=== PATIENT | male | born 1950 | race Caucasian/White ===

== ENCOUNTER → 2022-07-22 | Outpatient (CLI) | payer MEDICARE ==
--- NOTE | 2022-07-22 17:05 | MR ---
EXAMINATION TYPE: MR lumbar spine wo con DATE OF EXAM: 07/22/2022 COMPARISON: None HISTORY: Lower back pain, radiates into buttocks and down right leg. CONTRAST: 0 mL intravenous Gadavist. TECHNIQUE: Multiplanar, multisequence images of the lumbar spine were acquired. FINDINGS: L5-S1: No focal disc herniation. Mild disc bulge is present with anterior thecal sac contact. No spin al canal stenosis is present. There is severe left foraminal stenosis from facet hypertrophy. L4-L5: Broad-based disc bulge is present with mild anterior thecal sac compression. Severe right and left foraminal stenosis present. Facet hypertrophy is present. Mild lateral canal narrowing may be pr esent. L3-L4: Broad-based disc bulge is present with mild anterior thecal sac compression. Facet hypertrophy is present contributing to spinal canal stenosis. Some lateral canal narrowing is present. Ligamentu m flavum laxity is present. Severe right and mild left foraminal stenosis is present. L2-L3: Broad-based disc bulge is present with moderate anterior thecal sac compression. Mild facet hy pertrophy is present. No AP spinal canal stenosis is present. Moderate left foraminal narrowing is pr esent. L1-L2: No significant disc bulge or disc herniation. No spinal canal stenosis. No foraminal stenosi s. Neural foramen are patent.. T12-L1: No significant disc bulge or disc herniation. No spinal canal stenosis. No foraminal stenos is. Neural foramen are patent.. Disc desiccation is present. There is narrowing of disc height throughout the lumbar spine. Scoliosis is present. IMPRESSION: 1. Spinal canal stenosis L3-4 secondary to broad-based disc bulging and facet hypertrophy. 2. Severe foraminal stenosis L3-4 through L5-S1 discussed above.
== END | disposition home or self-care (01) ==
LOC: RADMRIMAIN 10:31
PROVIDERS: ATTEND Family Medicine
DX: M51.16 Intervertebral disc disorders with radiculopathy, lumbar region (principal); M47.26 Other spondylosis with radiculopathy, lumbar region; M48.061 Spinal stenosis, lumbar region without neurogenic claudication
CPT/HCPCS: 72148

== ENCOUNTER → 2023-08-03 | Outpatient (CLI) | payer MEDICARE ==
--- NOTE | 2023-08-04 08:36 | US ---
EXAMINATION TYPE: US kidneys/renal and bladder DATE OF EXAM: 08/03/2023 COMPARISON: NONE CLINICAL INDICATION: Male, 72 years old with history of R94.4 ABNORMAL RESULTS OF KIDNEY; Abnormal re nal function. EXAM MEASUREMENTS: Right Kidney: 11.1 x 6.4 x 5.7 cm Left Kidney: 11.1 x 6.0 x 5.5 cm Right Kidney: Complex area seen at mid: 4.5 x 2.9 x 2.9 cm. *Hypoechoic, indistinct area seen posteriorly at mid: 6.0 x 5.5 x 3.3 cm. Anechoic area seen lower pole: 2.0 x 2.1 x 1.4 cm. Left Kidney: Multiple anechoic areas seen. Largest seen is at mid: 4.0 x 4.0 x 2.0 cm. Bladder: Appears anechoic. Slightly limited due to patient's difficulty holding bladder. Bilateral Jets seen: Yes IMPRESSION: 1. No renal calcification or hydronephrosis. 2. 2 right renal masses including a4.5 cm well-circumscribed anechoic mass in the anterior right kid pamela most likely represents a cyst with a fine septation and 6.0 cm hypoechoic mass in the posterior r ight kidney which most likely represents a cyst. However, both lesions require CT or MRI with attenti on to the kidneys to definitively characterize as benign cysts.
== END | disposition home or self-care (01) ==
LOC: RADUSWWP 14:22
PROVIDERS: ATTEND Family Medicine
DX: R94.4 Abnormal results of kidney function studies (principal)
CPT/HCPCS: 76770

== ENCOUNTER → 2023-09-27 | Outpatient (CLI) | payer MEDICARE ==
--- NOTE | 2023-10-17 11:25 | MR ---
Site ID [email or web address] Patient Jian Carmona E ID [id number] Age/Gender: 72Y, M Order # N/A Procedure MR Abdomen wo/w con Date 09/27/2023 1:33:31 PM EXAMINATION TYPE: MR abdomen wo/w con DATE OF EXAM: 09/27/2023 6:30 PM INDICATION: Patient age: Male; 72 year old; Reason for study: Abnormal labs, renal lesions COMPARISON: Renal ultrasound 08/03/2023 TECHNIQUE: Multiplanar multi-sequence imaging was performed of the abdomen without and with IV contr ast. The patient was given 8 ccs of Gadavist intravenously and dynamic imaging was performed. Post IV contrast subtraction images were also submitted for review. FINDINGS: LOWER CHEST: No gross irregularity. ABDOMEN Liver: Unremarkable. Gallbladder and Bile ducts: Unremarkable. Pancreas: Unremarkable. Spleen: Unremarkable. Adrenal glands: Unremarkable. Kidneys: No hydronephrosis. Approximately 4 T2 hyperintense right renal cysts. Inferior mid kidney on e measures 3.5 cm with thin septation. The superior mid kidney medial one measures up to 4.5 cm withi n septation. Approximately 5T2 hyperintense left renal cysts. The largest which is exophytic in the l eft kidney measures up to 3.2 cm with additional larger lesion within the inferior pole of the left k idney measuring up to 3.3 cm. There is layering T1 hyperintensity identified within a posterior left mid kidney cyst measuring up to 2.4 cm. Additional punctate T1 hyperintensity within the cortex of th e left mid kidney. None of the lesions demonstrate contrast enhancement. Contrast is demonstrated wit hin both collecting systems on the delayed phases. Stomach and Bowel: Unremarkable as visualized. Peritoneum: No evidence of pneumoperitoneum, free fluid, or adenopathy. Vasculature: Unremarkable. No aortic aneurysm. Abdominal wall: Unremarkable. Musculoskeletal: The osseous structures appear intact. Degenerative changes of the visualized spine. Spinal canal stenosis at L3-L4 redemonstrated. S-shaped scoliotic curvature. IMPRESSION: Several bilateral benign renal cysts identified. Two of the cysts demonstrate single thin septation e ach. No enhancement is identified. These are consistent with Bosniak 2 cysts. Additional left posteri or mid kidney exophytic cyst without enhancement demonstrating intrinsic T1 layering signal most cons istent with a hemorrhagic/proteinaceous cyst. No suspicious enhancing renal lesion.
== END | disposition home or self-care (01) ==
LOC: RADMRIMAIN 14:08
PROVIDERS: ATTEND Family Medicine
DX: N28.89 Other specified disorders of kidney and ureter (principal); N28.1 Cyst of kidney, acquired
CPT/HCPCS: 74183; A9585